=== PATIENT | male | born 1955 | race Hispanic/Latino ===

== ENCOUNTER 2019-01-05 11:47 | Inpatient (IN) | payer MEDICARE ==
[2019-01-05 14:49] VITALS: BMI 27.5
[2019-01-05] MEDS ORDERED: Magnesium Oxide 400 mg Tab UD PO SCH (17:00)
[2019-01-05] MEDS ORDERED: CARVEDILOL 25 MG PO SCH (22:00)
[2019-01-05] MEDS: Magnesium Oxide 400 mg Tab UD PO SCH (22:42)
[2019-01-05] MEDS: Insulin Lispro (humaLOG) 100 Units/ml Inj SC SCH (22:49)
[2019-01-05] MEDS ORDERED: GlipiZIDE 10 mg SR Tab PO ONE (23:01)
[2019-01-06] MEDS: Pantoprazole 40 mg EC Tab PO SCH (06:57)
[2019-01-06 07:13] LABS: MEAN CELL VOLUME 86.9 fl (80.0-94.0); MEAN CORPUSCULAR HEMOGLOBIN 29.7 pg (27.0-31.0); MEAN CORPUSCULAR HGB CONC 34.2 g/dL (33.0-37.0); RBC 4.71 Mil/uL (4.40-5.90); RED CELL DISTRIBUTION WIDTH 13.1 % (11.5-14.5); WHITE BLOOD COUNT 7.3 K/uL (4.8-10.8)
[2019-01-06 07:28] LABS: ALB/GLOB RATIO 1.2 (1.0-2.1); ALBUMIN 3.8 g/dL (3.5-5.0); ALT/SGPT 24 U/L (21-72); AST/SGOT 20 U/L (17-59); BLOOD UREA NITROGEN 22 mg/dl (9-20); CALCIUM 9.7 mg/dL (8.4-10.2); GFR NON-AFRICAN AMERICAN > 60
[2019-01-06] MEDS: Insulin Lispro (humaLOG) 100 Units/ml Inj SC SCH ×4 (08:06→21:16)
[2019-01-06] MEDS: Aspirin 325 mg EC Tablets PO SCH (08:22)
[2019-01-06] MEDS: GlipiZIDE 10 mg SR Tab PO SCH ×2 (08:24→16:34)
[2019-01-06] MEDS: Lidocaine 5% Patch TD SCH (08:25)
[2019-01-06] MEDS: Magnesium Oxide 400 mg Tab UD PO SCH ×2 (08:30→16:34)
[2019-01-06] MEDS ORDERED: Lidocaine 5% Patch TD SCH (09:00)
--- NOTE | 2019-01-06 09:46 | CP.PCM.HP ---
History of Present Illness - History of Present Illness History of Present Illness: CC: Acute Rehab for Acute CVA History of Present Illness: A 63 year old male with history of Diabetes type 2, Ischemic [place], pacemaker, and Hypertension, presents to the emergency department complaining of left upper/lower extremity weakness starting yesterday. Patient reports yesterday he was watching TV and upon getting up from his chair, he felt sudden weakness to his left lower extremity and fell to the floor. Patient assumed it was due to low blood sugar, so he checked it and it measured to 260. Patient remained unconcerned at the time regarding his weakness. Today, patient continues to experience in the lower left extremity, as well as the left upper extremity. Patient was unable to ambulate and decided to come to the ER to be evaluated for symptoms. in [facility] he was found to have acute CVA with Leg Weakness and loss of c oordination. Patient denies any head trauma, LOC, or any other complaints at this time. Denies any history of alcohol consumption, and is no longer a smoker. Present on Admission - Present on Admission Any Indicators Present on Admission: No Review of Systems - Review of Systems All systems: reviewed and no additional remarkable complaints except Review of Systems: as per HPI Past Patient History - Tetanus Immunizations Tetanus Immunization: Unknown - Past Medical History & Family History Past Medical History?: Yes Past Family History: Reviewed and not pertinent - Past Social History Smoking Status: Current Some Days Smoker Alcohol: None Drugs: Denies - CARDIAC Hx Cardiac Disorders: Yes (Cardiomyopathy s/p defibrillator) Hx Congestive Heart Failure: Yes Hx Hypercholesterolemia: Yes Hx Hypertension: Yes - PULMONARY Hx Chronic Obstructive Pulmonary Disease (COPD): Yes - NEUROLOGICAL HX Cerebrovascular Accident: Yes - HEENT Other/Comment: wears glasses - ENDOCRINE/METABOLIC Hx Diabetes Mellitus Type 2: Yes - HEMATOLOGICAL/ONCOLOGICAL Hx AIDS: No Hx Human Immunodeficiency Virus (HIV): No - MUSCULOSKELETAL/RHEUMATOLOGICAL Hx Falls: Yes - PSYCHIATRIC Hx Substance Use: No - ANESTHESIA Hx Anesthesia: Yes Hx Anesthesia Reactions: No Hx Malignant Hyperthermia: No Has any member of the family had a problem w/ anesthesia?: No Meds Allergies/Adverse Reactions: Allergies Allergy/AdvReac Type Severity Reaction Status Date / Time No Known Allergies Allergy Verified 01/05/19 16:23 Physical Exam - Constitutional Appears: Well, No Acute Distress - Head Exam Head Exam: ATRAUMATIC, NORMAL INSPECTION, NORMOCEPHALIC - Eye Exam Eye Exam: EOMI, Normal appearance, PERRL Pupil Exam: NORMAL ACCOMODATION, PERRL - ENT Exam ENT Exam: Mucous Membranes Moist, Normal Exam - Neck Exam Neck exam: Positive for: Normal Inspection - Respiratory Exam Respiratory Exam: Clear to Auscultation Bilateral, NORMAL BREATHING PATTERN - Cardiovascular Exam Cardiovascular Exam: REGULAR RHYTHM, +S1, +S2 - GI/Abdominal Exam GI & Abdominal Exam: Normal Bowel Sounds, Soft. absent: Tenderness - Extremities Exam Extremities exam: Positive for: full ROM, normal capillary refill, normal inspection - Back Exam Back exam: NORMAL INSPECTION - Neurological Exam Neurological exam: Abnormal Gait, Alert, Motor Sensory Deficit, Oriented x3 - Psychiatric Exam Psychiatric exam: Normal Affect, Normal Mood - Skin Skin Exam: Dry, Intact, Normal Color, Warm Results - Vital Signs Recent Vital Signs: Last Vital Signs Temp 98.2 F 01/06/19 08:14 Pulse 72 01/06/19 08:30 Resp 20 01/06/19 08:14 BP 102/59 L 01/06/19 08:30 Pulse Ox 97 01/06/19 08:14 - Labs Result Diagrams: 01/06/19 06:25 01/07/19 05:30 Labs: Laboratory Results - last 24 hr 01/05/19 01/05/19 01/05/19 15:45 21:05 21:05 WBC RBC Hgb Hct MCV MCH MCHC RDW Plt Count Sodium Potassium Chloride Carbon Dioxide Anion Gap BUN Creatinine Est GFR ( Amer) Est GFR (Non-Af Amer) POC Glucose (mg/dL) 194 H 195 H 195 H Random Glucose Calcium Total Bilirubin AST ALT Alkaline Phosphatase Total Protein Albumin Globulin Albumin/Globulin Ratio 01/06/19 01/06/19 01/06/19 06:25 06:25 07:13 WBC 7.3 RBC 4.71 Hgb 14.0 Hct 40.9 MCV 86.9 MCH 29.7 MCHC 34.2 RDW 13.1 Plt Count 177 Sodium 136 Potassium 5.3 H Chloride 96 L Carbon Dioxide 27 Anion Gap 18 BUN 22 H Creatinine 1.0 Est GFR ( Amer) > 60 Est GFR (Non-Af Amer) > 60 POC Glucose (mg/dL) 180 H Random Glucose 173 H Calcium 9.7 Total Bilirubin 0.9 AST 20 ALT 24 Alkaline Phosphatase 76 Total Protein 6.9 Albumin 3.8 Globulin 3.1 Albumin/Globulin Ratio 1.2 - Imaging and Cardiology CT scan - head Status: Report reviewed by me Additional comment: Date of service: 01/04/2019 PROCEDURE: CT HEAD WITHOUT CONTRAST. HISTORY: r/o CVA COMPARISON: 01/03/2019 and 10/22/2012 CT TECHNIQUE: Axial computed tomography images were obtained through the head/brain without intravenous contrast. Radiation dose: Total exam DLP = 922.13 mGy-cm. This CT exam was performed using one or more of the following dose reduction techniques: Automated exposure control, adjustment of the mA and/or kV according to patient size, and/or use of iterative reconstruction technique. FINDINGS: HEMORRHAGE: No intracranial hemorrhage. BRAIN: No mass effect or edema. Chronic microvascular changes are seen in the periventricular white matter. There is a 10 mm round infarct in the right periventricular white matter that appears more well-defined than on yesterday's study. This is suspicious for an acute infarct. VENTRICLES: Unremarkable. No hydrocephalus. CALVARIUM: Unremarkable. PARANASAL SINUSES: Unremarkable as visualized. No significant inflammatory changes. MASTOID AIR CELLS: Unremarkable as visualized. No inflammatory changes. OTHER FINDINGS: None. IMPRESSION: Chronic microvascular changes are seen in the periventricular white matter. There is a 10 mm round infarct in the right periventricular white matter that appears more well-defined than on yesterday's study. This is suspicious for an acute infarct. 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
--- NOTE | 2019-01-06 11:59 | RAD ---
Date of service: 01/06/2019 PROCEDURE: Radiographs of the Chest and Right Ribs. HISTORY: Fall, and Right Chest Pain COMPARISON: None available. TECHNIQUE: Frontal radiograph of the chest and multiple oblique radiographs of the right ribs were obtained. FINDINGS: RIGHT RIBS: The bulbous prominence-some old healed fractures here and/or prominent the coaster cartilaginous bulbous calcifications are another consideration these findings are mainly the 4th 5th and 6th ribs. Discrete radiolucent fracture lines are difficult to confirm on this exam-are some confounding right tracheobronchial air lucencies per also projecting of the ribs impeding optimal evaluation on series 32, image 6 there is deformity of the mid right clavicle compatible with old healed trauma is well. Probable right calcific rotator cuff tendinopathy or calcific bursitis. Noted. Here no fracture lines seen. Old healed trauma inferred the exam is particularly limited regarding the more anterior LUNGS: Clear. PLEURA: No pneumothorax or pleural fluid. CARDIOVASCULAR: Cardiomegaly. Midline sternotomy. The most superior in the 2nd the top sternal wires are not completely continuous. The chronicity of this discontinuity sternal wires is not known. Small gaps are noted. Correlate clinically with any earlier outside chest x-rays. Single pacemaker device in place as well no pulmonary vascular congestion. No aortic atherosclerotic calcification present OTHER FINDINGS: None. IMPRESSION: A several slight deformities of the right ribs posteriorly and anteriorly are noted as detailed above these are most compatible with old remote fractures. Definitive new or acute fractures are not ascertained or confirm. Old right clavicular fracture with resultant deformity. No pneumothorax or pleural effusion seen. Other findings as above.
--- NOTE | 2019-01-06 16:41 | CP.PCM.CON ---
History of Present Illness - History of Present Illness History of Present Illness: Dr Tesfaye PMR consultation on Checo Guzman, born 1955 who has been admitted to [facility] for acute inpatient rehabilitation following an admission for acute right CVA with left HP LISA distribution. He has had some good early recovery. No tPA given. Right hand dominant Review of Systems - Constitutional Constitutional: absent: Anorexia - EENT Eyes: absent: Change in Vision Ears: absent: Ear Discharge, Ear Pain Nose/Mouth/Throat: absent: Nasal Congestion, Nasal Discharge - Cardiovascular Cardiovascular: absent: Chest Pain, Chest Pain at Rest - Respiratory Respiratory: absent: Dyspnea, Hemoptysis - Gastrointestinal Gastrointestinal: absent: Abdominal Pain - Musculoskeletal Musculoskeletal: absent: Back Pain - Integumentary Integumentary: absent: Bleeding Lesions - Neurological Neurological: absent: Abnormal Hearing, Abnormal Movements, Burning Sensations, Confusion, Dizziness, Memory Loss, Paresthesias - Psychiatric Psychiatric: absent: Anxiety Past Patient History - Tetanus Immunizations Tetanus Immunization: Unknown - Past Medical History & Family History Past Medical History?: Yes - Past Social History Smoking Status: Current Some Days Smoker Drugs: Denies Home Situation {Lives}: Other (girlfriend. + steps) - CARDIAC Hx Cardiac Disorders: Yes (Cardiomyopathy s/p defibrillator) Hx Congestive Heart Failure: Yes Hx Hypercholesterolemia: Yes Hx Hypertension: Yes - PULMONARY Hx Chronic Obstructive Pulmonary Disease (COPD): Yes - NEUROLOGICAL HX Cerebrovascular Accident: Yes - HEENT Other/Comment: wears glasses - ENDOCRINE/METABOLIC Hx Diabetes Mellitus Type 2: Yes - HEMATOLOGICAL/ONCOLOGICAL Hx AIDS: No Hx Human Immunodeficiency Virus (HIV): No - MUSCULOSKELETAL/RHEUMATOLOGICAL Hx Falls: Yes - PSYCHIATRIC Hx Substance Use: No - ANESTHESIA Hx Anesthesia: Yes Hx Anesthesia Reactions: No Hx Malignant Hyperthermia: No Has any member of the family had a problem w/ anesthesia?: No Meds Allergies/Adverse Reactions: Allergies Allergy/AdvReac Type Severity Reaction Status Date / Time No Known Allergies Allergy Verified 01/05/19 16:23 - Medications Medications: Current Medications Acetaminophen (Tylenol 325mg Tab) 650 mg PO Q6 PRN PRN Reason: for pain scale 4-10 Last Admin: 01/06/19 00:10 Dose: 650 mg Aspirin (Ecotrin) 325 mg PO DAILY [facility] Last Admin: 01/06/19 08:22 Dose: 325 mg Atorvastatin Calcium (Lipitor) 80 mg PO DIN [facility] Last Admin: 01/06/19 16:35 Dose: 80 mg Carvedilol (Coreg) 25 mg PO BID [facility] Last Admin: 01/06/19 16:35 Dose: 25 mg Cyclobenzaprine HCl (Flexeril) 5 mg PO TID [facility] Last Admin: 01/06/19 16:34 Dose: 5 mg Furosemide (Lasix) 40 mg PO DAILY [facility] Last Admin: 01/06/19 08:24 Dose: 40 mg Glipizide (Glucotrol Xl) 10 mg PO 0800,1700 [facility] Last Admin: 01/06/19 16:34 Dose: 10 mg Insulin Human Lispro (Humalog) 0 units SC ACHS [facility]; Protocol Last Admin: 01/06/19 12:00 Dose: 4 unit Lidocaine (Lidoderm) 1 ea TD DAILY [facility] Last Admin: 01/06/19 08:25 Dose: 1 ea Lisinopril (Zestril) 20 mg PO DAILY [facility] Last Admin: 01/06/19 08:30 Dose: 20 mg Magnesium Oxide (Mag-Ox) 400 mg PO BID [facility] Last Admin: 01/06/19 16:34 Dose: 400 mg Metformin HCl (Glucophage) 1,000 mg PO BID [facility] Last Admin: 01/06/19 16:34 Dose: 1,000 mg Pantoprazole Sodium (Protonix Ec Tab) 40 mg PO 0600 [facility] Last Admin: 01/06/19 06:57 Dose: 40 mg Physical Exam - Constitutional Appears: Well, Non-toxic, No Acute Distress - Head Exam Head Exam: ATRAUMATIC, NORMAL INSPECTION, NORMOCEPHALIC - Eye Exam Eye Exam: EOMI - ENT Exam ENT Exam: Mucous Membranes Moist - Respiratory Exam Respiratory Exam: NORMAL BREATHING PATTERN - Cardiovascular Exam Cardiovascular Exam: REGULAR RHYTHM - GI/Abdominal Exam GI & Abdominal Exam: Normal Bowel Sounds - Extremities Exam Extremities exam: Negative for: calf tenderness, pedal edema - Neurological Exam Neurological exam: Alert, CN II-XII Intact, Oriented x3 - Psychiatric Exam Psychiatric exam: Normal Affect, Normal Mood - Skin Skin Exam: Warm Results - Vital Signs Recent Vital Signs: Last Vital Signs Temp 98.2 F 01/06/19 08:14 Pulse 66 01/06/19 16:35 Resp 20 01/06/19 08:14 BP 119/79 01/06/19 16:35 Pulse Ox 97 01/06/19 08:14 - Labs Result Diagrams: 01/06/19 06:25 01/06/19 06:25 Labs: Laboratory Results - last 24 hr 01/05/19 01/05/19 01/06/19 21:05 21:05 06:25 WBC 7.3 RBC 4.71 Hgb 14.0 Hct 40.9 MCV 86.9 MCH 29.7 MCHC 34.2 RDW 13.1 Plt Count 177 Sodium Potassium Chloride Carbon Dioxide Anion Gap BUN Creatinine Est GFR ( Amer) Est GFR (Non-Af Amer) POC Glucose (mg/dL) 195 H 195 H Random Glucose Calcium Total Bilirubin AST ALT Alkaline Phosphatase Total Protein Albumin Globulin Albumin/Globulin Ratio 01/06/19 01/06/19 01/06/19 06:25 07:13 11:28 WBC RBC Hgb Hct MCV MCH MCHC RDW Plt Count Sodium 136 Potassium 5.3 H Chloride 96 L Carbon Dioxide 27 Anion Gap 18 BUN 22 H Creatinine 1.0 Est GFR ( Amer) > 60 Est GFR (Non-Af Amer) > 60 POC Glucose (mg/dL) 180 H 314 H Random Glucose 173 H Calcium 9.7 Total Bilirubin 0.9 AST 20 ALT 24 Alkaline Phosphatase 76 Total Protein 6.9 Albumin 3.8 Globulin 3.1 Albumin/Globulin Ratio 1.2 01/06/19 16:02 WBC RBC Hgb Hct MCV MCH MCHC RDW Plt Count Sodium Potassium Chloride Carbon Dioxide Anion Gap BUN Creatinine Est GFR ( Amer) Est GFR (Non-Af Amer) POC Glucose (mg/dL) 215 H Random Glucose Calcium Total Bilirubin AST ALT Alkaline Phosphatase Total Protein Albumin Globulin Albumin/Globulin Ratio Assessment & Plan - Assessment and Plan (Free Text) Assessment: PT/OT to continue to help increase functional independence Team conference for d/c planning Pain: controlled Vascular: no evidence of DVT GI: No evidence of constipation or diarrhea Patient is an excellent acute rehabilitation candidate and will have focused PT, OT and recreational therapy to help facilitate a safe and appropriate d/c plan Impairment code: 01.1 right UE/LE 5/5 left UE 4/5 left LE 3/5
--- NOTE | 2019-01-06 17:10 | PCM.OPOC ---
Physiatry Overall Plan of Care - Overall Plan of Care Estimated Length of Stay in Weeks: 2 Rehab Impairment: Mobility, Gait, Balance, Coordination Etiologic Diagnosis: Cerebrovascular Accident Rehab/Medical Prognosis: Good - Anticipated Interventions Physical Therapy:: Yes Occupational Therapy:: Yes Speech Therapy:: No Recreational Therapy:: Yes - Therapy Goals Bed Mobility: Independent Ambulation: Independent Functional Positional Changes:: Independent - Discharge Plan Identification of Barriers to Discharge: Home Situation Discharge Destination: Home
[2019-01-07 06:44] LABS: BLOOD UREA NITROGEN 20 mg/dl (9-20); CALCIUM 9.3 mg/dL (8.4-10.2); GFR NON-AFRICAN AMERICAN > 60
[2019-01-07] MEDS: Pantoprazole 40 mg EC Tab PO SCH (06:52)
[2019-01-07] MEDS: Insulin Lispro (humaLOG) 100 Units/ml Inj SC SCH ×4 (07:56→21:12)
[2019-01-07] MEDS: GlipiZIDE 10 mg SR Tab PO SCH ×2 (08:00→17:12)
[2019-01-07] MEDS: Magnesium Oxide 400 mg Tab UD PO SCH ×2 (08:24→17:13)
[2019-01-07] MEDS: Aspirin 325 mg EC Tablets PO SCH (08:24)
[2019-01-07] MEDS: Lidocaine 5% Patch TD SCH (08:26)
--- NOTE | 2019-01-08 02:57 | CP.PCM.PN ---
Subjective - Date & Time of Evaluation Date of Evaluation: 01/07/19 Time of Evaluation: 18:00 Objective - Vital Signs/Intake and Output Vital Signs (last 24 hours): Temp Pulse Resp BP Pulse Ox 97.3 F L 71 20 115/69 97 01/07/19 20:20 01/07/19 20:20 01/07/19 20:20 01/07/19 20:20 01/07/19 20:20 - Medications Medications: Current Medications Acetaminophen (Tylenol 325mg Tab) 650 mg PO Q6 PRN PRN Reason: Pain, moderate (4-7) Aspirin (Ecotrin) 325 mg PO DAILY [facility] Last Admin: 01/07/19 08:24 Dose: 325 mg Atorvastatin Calcium (Lipitor) 80 mg PO DIN [facility] Last Admin: 01/07/19 17:13 Dose: 80 mg Carvedilol (Coreg) 25 mg PO BID [facility] Last Admin: 01/07/19 17:10 Dose: 25 mg Cyclobenzaprine HCl (Flexeril) 5 mg PO TID [facility] Last Admin: 01/07/19 17:09 Dose: 5 mg Furosemide (Lasix) 40 mg PO DAILY [facility] Last Admin: 01/07/19 08:25 Dose: 40 mg Glipizide (Glucotrol Xl) 10 mg PO 0800,1700 [facility] Last Admin: 01/07/19 17:12 Dose: 10 mg Insulin Human Lispro (Humalog) 0 units SC [facility]; Protocol Last Admin: 01/07/19 21:12 Dose: Not Given Lidocaine (Lidoderm) 1 ea TD DAILY [facility] Last Admin: 01/07/19 08:26 Dose: 1 ea Lisinopril (Zestril) 20 mg PO DAILY [facility] Last Admin: 01/07/19 08:27 Dose: 20 mg Magnesium Oxide (Mag-Ox) 400 mg PO BID [facility] Last Admin: 01/07/19 17:13 Dose: 400 mg Metformin HCl (Glucophage) 1,000 mg PO BID [facility] Last Admin: 01/07/19 17:12 Dose: 1,000 mg Pantoprazole Sodium (Protonix Ec Tab) 40 mg PO 0600 [facility] Last Admin: 01/07/19 06:52 Dose: 40 mg Tramadol HCl (Ultram) 50 mg PO Q12 PRN PRN Reason: Pain, severe (8-10) Last Admin: 01/07/19 21:18 Dose: 50 mg - Labs Labs: 01/06/19 06:25 01/07/19 05:30 Assessment and Plan (1) Cerebrovascular accident Status: Acute (2) Dyspnea Status: Acute (3) Hyperglycemia due to type 1 diabetes mellitus Status: Acute (4) Cardiomyopathy Status: Chronic
[2019-01-08] MEDS: Pantoprazole 40 mg EC Tab PO SCH (06:25)
[2019-01-08] MEDS: Insulin Lispro (humaLOG) 100 Units/ml Inj SC SCH ×4 (06:30→21:00)
[2019-01-08] MEDS: GlipiZIDE 10 mg SR Tab PO SCH ×2 (08:15→16:29)
[2019-01-08] MEDS: Aspirin 325 mg EC Tablets PO SCH (08:16)
[2019-01-08] MEDS: Magnesium Oxide 400 mg Tab UD PO SCH ×2 (08:16→16:30)
[2019-01-08] MEDS: Lidocaine 5% Patch TD SCH (08:17)
--- NOTE | 2019-01-08 16:35 | CP.PCM.PN ---
Subjective - Date & Time of Evaluation Date of Evaluation: 01/08/19 Time of Evaluation: 16:34 - Subjective Subjective: Patient seen in the gym, doing well denies sob/cp no pain did over 150' with RW excellent acute rehab candidate Objective - Vital Signs/Intake and Output Vital Signs (last 24 hours): Temp Pulse Resp BP Pulse Ox 98.2 F 78 18 108/59 L 98 01/08/19 08:30 01/08/19 16:29 01/08/19 08:30 01/08/19 16:29 01/08/19 08:30 - Medications Medications: Current Medications Acetaminophen (Tylenol 325mg Tab) 650 mg PO Q6 PRN PRN Reason: Pain, moderate (4-7) Aspirin (Ecotrin) 325 mg PO DAILY [facility] Last Admin: 01/08/19 08:16 Dose: 325 mg Atorvastatin Calcium (Lipitor) 80 mg PO DIN [facility] Last Admin: 01/08/19 16:30 Dose: 80 mg Carvedilol (Coreg) 25 mg PO BID [facility] Last Admin: 01/08/19 16:29 Dose: 25 mg Cyclobenzaprine HCl (Flexeril) 5 mg PO TID [facility] Last Admin: 01/08/19 16:27 Dose: 5 mg Furosemide (Lasix) 40 mg PO DAILY [facility] Last Admin: 01/08/19 08:16 Dose: 40 mg Glipizide (Glucotrol Xl) 10 mg PO 0800,1700 [facility] Last Admin: 01/08/19 16:29 Dose: 10 mg Insulin Human Lispro (Humalog) 0 units SC ACHS [facility]; Protocol Last Admin: 01/08/19 16:23 Dose: Not Given Lidocaine (Lidoderm) 1 ea TD DAILY [facility] Last Admin: 01/08/19 08:17 Dose: 1 ea Lisinopril (Zestril) 20 mg PO DAILY [facility] Magnesium Oxide (Mag-Ox) 400 mg PO BID [facility] Last Admin: 01/08/19 16:30 Dose: 400 mg Metformin HCl (Glucophage) 1,000 mg PO BID [facility] Last Admin: 01/08/19 16:29 Dose: 1,000 mg Pantoprazole Sodium (Protonix Ec Tab) 40 mg PO 0600 [facility] Last Admin: 01/08/19 06:25 Dose: 40 mg Tramadol HCl (Ultram) 50 mg PO Q12 PRN PRN Reason: Pain, severe (8-10) - Labs Labs: 01/06/19 06:25 01/07/19 05:30
--- NOTE | 2019-01-09 01:00 | CP.PCM.PN ---
Subjective - Date & Time of Evaluation Date of Evaluation: 01/08/19 Time of Evaluation: 12:05 Objective - Vital Signs/Intake and Output Vital Signs (last 24 hours): Temp Pulse Resp BP Pulse Ox 98.2 F 76 20 109/66 95 01/08/19 19:45 01/08/19 19:45 01/08/19 19:45 01/08/19 19:45 01/08/19 19:45 - Medications Medications: Current Medications Acetaminophen (Tylenol 325mg Tab) 650 mg PO Q6 PRN PRN Reason: Pain, moderate (4-7) Aspirin (Ecotrin) 325 mg PO DAILY [facility] Last Admin: 01/08/19 08:16 Dose: 325 mg Atorvastatin Calcium (Lipitor) 80 mg PO DIN [facility] Last Admin: 01/08/19 16:30 Dose: 80 mg Carvedilol (Coreg) 25 mg PO BID [facility] Last Admin: 01/08/19 16:29 Dose: 25 mg Cyclobenzaprine HCl (Flexeril) 5 mg PO TID [facility] Last Admin: 01/08/19 16:27 Dose: 5 mg Furosemide (Lasix) 40 mg PO DAILY [facility] Last Admin: 01/08/19 08:16 Dose: 40 mg Glipizide (Glucotrol Xl) 10 mg PO 0800,1700 [facility] Last Admin: 01/08/19 16:29 Dose: 10 mg Insulin Human Lispro (Humalog) 0 units SC [facility]; Protocol Last Admin: 01/08/19 21:00 Dose: Not Given Lidocaine (Lidoderm) 1 ea TD DAILY [facility] Last Admin: 01/08/19 08:17 Dose: 1 ea Lisinopril (Zestril) 20 mg PO DAILY [facility] Magnesium Oxide (Mag-Ox) 400 mg PO BID [facility] Last Admin: 01/08/19 16:30 Dose: 400 mg Metformin HCl (Glucophage) 1,000 mg PO BID [facility] Last Admin: 01/08/19 16:29 Dose: 1,000 mg Pantoprazole Sodium (Protonix Ec Tab) 40 mg PO 0600 [facility] Last Admin: 01/08/19 06:25 Dose: 40 mg Tramadol HCl (Ultram) 50 mg PO Q12 PRN PRN Reason: Pain, severe (8-10) Last Admin: 01/08/19 20:57 Dose: 50 mg - Labs Labs: 01/06/19 06:25 03/07/19 05:30 Assessment and Plan (1) Cerebrovascular accident Status: Acute (2) Dyspnea Status: Acute (3) Hyperglycemia due to type 1 diabetes mellitus Status: Acute (4) Cardiomyopathy Status: Chronic
[2019-01-09] MEDS: Pantoprazole 40 mg EC Tab PO SCH (06:15)
[2019-01-09] MEDS: Insulin Lispro (humaLOG) 100 Units/ml Inj SC SCH ×4 (06:30→21:14)
[2019-01-09] MEDS: Lidocaine 5% Patch TD SCH (08:18)
[2019-01-09] MEDS: GlipiZIDE 10 mg SR Tab PO SCH ×2 (08:19→17:12)
[2019-01-09] MEDS: Magnesium Oxide 400 mg Tab UD PO SCH ×2 (08:21→17:09)
[2019-01-09] MEDS: Aspirin 325 mg EC Tablets PO SCH (08:22)
[2019-01-10] MEDS: Pantoprazole 40 mg EC Tab PO SCH (06:44)
[2019-01-10] MEDS: Insulin Lispro (humaLOG) 100 Units/ml Inj SC SCH ×4 (07:42→21:13)
[2019-01-10] MEDS: Aspirin 325 mg EC Tablets PO SCH (08:22)
[2019-01-10] MEDS: Magnesium Oxide 400 mg Tab UD PO SCH ×2 (08:23→17:21)
[2019-01-10] MEDS: GlipiZIDE 10 mg SR Tab PO SCH ×2 (08:23→17:21)
[2019-01-10] MEDS: Lidocaine 5% Patch TD SCH (08:24)
[2019-01-11] MEDS: Pantoprazole 40 mg EC Tab PO SCH (06:35)
[2019-01-11] MEDS: Insulin Lispro (humaLOG) 100 Units/ml Inj SC SCH ×5 (06:48→21:03)
[2019-01-11] MEDS: Magnesium Oxide 400 mg Tab UD PO SCH ×2 (08:20→17:15)
[2019-01-11] MEDS: GlipiZIDE 10 mg SR Tab PO SCH ×2 (08:23→17:14)
[2019-01-11] MEDS: Aspirin 325 mg EC Tablets PO SCH (08:28)
[2019-01-11] MEDS: Lidocaine 5% Patch TD SCH (12:24)
--- NOTE | 2019-01-11 17:56 | CP.PCM.PN ---
Subjective - Date & Time of Evaluation Date of Evaluation: 01/11/19 Time of Evaluation: 17:55 - Subjective Subjective: Patient seen in the room very, very impressed and appreciative for the care he has received to this point denies sob/cp feels balance is 90% recovered no knee pain which had actually been bothering him before the admission and feels like he can go home shortly I told him this will be discussed tomorrow in teams good UE/LE strength Objective - Vital Signs/Intake and Output Vital Signs (last 24 hours): Temp Pulse Resp BP Pulse Ox 97.3 F L 78 20 101/62 97 01/11/19 07:26 01/11/19 17:12 01/11/19 07:26 01/11/19 17:12 01/11/19 07:26 - Medications Medications: Current Medications Acetaminophen (Tylenol 325mg Tab) 650 mg PO Q6 PRN PRN Reason: Pain, moderate (4-7) Aspirin (Ecotrin) 325 mg PO DAILY [facility] Last Admin: 01/11/19 08:28 Dose: 325 mg Atorvastatin Calcium (Lipitor) 80 mg PO DIN [facility] Last Admin: 01/11/19 17:14 Dose: 80 mg Carvedilol (Coreg) 25 mg PO BID [facility] Last Admin: 01/11/19 17:12 Dose: 25 mg Cyclobenzaprine HCl (Flexeril) 5 mg PO TID [facility] Last Admin: 01/11/19 17:13 Dose: 5 mg Furosemide (Lasix) 40 mg PO DAILY [facility] Last Admin: 01/11/19 08:30 Dose: 40 mg Glipizide (Glucotrol Xl) 10 mg PO 0800,1700 [facility] Last Admin: 01/11/19 17:14 Dose: 10 mg Insulin Human Lispro (Humalog) 0 units SC [facility]; Protocol Last Admin: 01/11/19 17:18 Dose: Not Given Lidocaine (Lidoderm) 1 ea TD DAILY [facility] Last Admin: 01/11/19 12:24 Dose: 1 ea Lisinopril (Zestril) 20 mg PO DAILY [facility] Last Admin: 01/11/19 12:31 Dose: 20 mg Magnesium Oxide (Mag-Ox) 400 mg PO BID [facility] Last Admin: 01/11/19 17:15 Dose: 400 mg Metformin HCl (Glucophage) 1,000 mg PO BID [facility] Last Admin: 01/11/19 17:14 Dose: 1,000 mg Pantoprazole Sodium (Protonix Ec Tab) 40 mg PO 0600 [facility] Last Admin: 01/11/19 06:35 Dose: 40 mg Tramadol HCl (Ultram) 50 mg PO Q12 PRN PRN Reason: Pain, severe (8-10) - Labs Labs: 01/06/19 06:25 01/07/19 05:30
[2019-01-12] MEDS: Pantoprazole 40 mg EC Tab PO SCH (06:32)
[2019-01-12] MEDS: Insulin Lispro (humaLOG) 100 Units/ml Inj SC SCH ×4 (06:34→21:00)
[2019-01-12] MEDS: GlipiZIDE 10 mg SR Tab PO SCH ×2 (08:17→16:31)
[2019-01-12] MEDS: Aspirin 325 mg EC Tablets PO SCH (08:19)
[2019-01-12] MEDS: Lidocaine 5% Patch TD SCH (08:20)
[2019-01-12] MEDS: Magnesium Oxide 400 mg Tab UD PO SCH ×2 (08:20→16:30)
--- NOTE | 2019-01-12 13:13 | PCM.PSYTMC ---
Acute Rehab Team Conference - - Vital Signs: Vital Signs (Last 8 Hours): Vital Signs 01/12/19 01/12/19 01/12/19 07:47 08:05 08:19 Temperature 98.8 F 98.8 F Pulse Rate 75 75 75 Respiratory 21 21 Rate Blood Pressure 120/74 120/74 120/74 O2 Sat by Pulse 96 Oximetry 01/12/19 08:20 Temperature Pulse Rate Respiratory Rate Blood Pressure 120/74 O2 Sat by Pulse Oximetry Pain: 0 - Precautions: Precautions: Fall Prevention - Medications/Other Issues: Comment: -Improving left sided weakness - Consults: Comment: -Dr. Tesfaye - physiatry - Skin: Incision Site: N/A - Toileting: Toileting: Modified Independent - Bladder Management: Bladder Pattern: Normal Voiding Method: Toilet, Urinal Bladder Management: Supervision - Transfers: Transfers: Supervision - ADL's: ADL's: Supervision - Pain Management: Other Intervention:: -Lidoderm patch on for 12 hours; off for 12 hours. -Ultram PRN - Patient/Family Teaching: Other Intervention:: -Teach patient safety precautions, diagnosis, and medication. - Goals/Time Frame: Comment: Patient will remain safe and have improved knowledge in his diagnosis and medication. - Provider: Registered Nurse:: Amarilis Garcia Physical Therapy - Bed Mobility Bed Mobility: Modified Independent - Transfers Wheelchair to Mat: Modified Independent Sit to Stand: Modified Independent Comment: Mod I with RW - Ambulation Level of Assistance: Supervision Distance (ft.): 150 Assistive Devices: Rolling Walker Comment: 50' with min A WBQC - Stair Negotiation Stairs: Level of Assistance: Supervision Number of Stairs: 6 Handrails: Bilateral Stairs: Assistive Devices: Left Handrail, Right Handrail - Standing Balance Static Stand: Modified [place] with assistive device - Pain Pain (assessed during therapy session): 1 Alleviating Techniques: Exercise - Insight/Carryover Insight/Carryover: Good - Patient/Family Education Comment: Reviewed the Plan of care - Assessment/Plan Assessment: Pt has made significant gains, now ambulating with sup with RW and will progress to ambulation with NBQC. He continues to demonstrate endurance and motor impairments of LLE which affects his safety ambulating with NBQC. Pt still needs to be assessed with outdoor ambulation and car transfers. - Goals Timeframe: 1 week Goals: sit <> stand mod I. amb NBQC 200' mod I. up and down 1 flight with 1 rail and NBQC mod I - Provider Physical Therapist:: Valery Bravo License Number:: [id number] Occupational Therapy - Arousal/Attention/Orientation Level of Consciousness: Awake, Alert Patient Orientation: Person, Place, Time, Appropriate to Age, Appropriate to Situation, Disoriented Assessment Comment: -anxious to go home-pt reminded of team conference with Dr. Tesfaye on 01/12. -prefers to f/u with outpatient physical therapy. -pillowcase maker made aware of pt's concerns - ADL/IADL Self Feeding: Modified Independent Grooming: Set-up Help Bathing-Upper Ext: Set-up Help Bathing-Lower Ext: Supervision, Set-up Help Dressing-Upper Ext: Set-up Help Dressing-Lower Ext: Supervision, Verbal Cues Homemaking: Verbal Cues, Set-up Help, Contact Guard - Sitting Balance Static Sitting: Independent without upper extremity support Dynamic Sitting: Reaches across midline, Reaches out of base of support, Reaches within base of support, Requires supervision Comment: seated unsupported - Transfers Wheelchair to Bed Transfers: Supervision, Verbal Cues, Set-up Help Toilet Transfers: Supervision, Verbal Cues, Set-up Help Comment: *shower transfers: S/CS with RW. NOTE:Pt has walk in shower at home & elevated/elongated toilet - Wheelchair Management Level of Assistance: Modified Independent Distance (ft.): 150 - Upper Extremity Status Right Upper Extremity Comment: AROM is WNLS: 5/5 Left Upper Extremity Comment: AROM is WNLS:4/4 - Pain Pain (assessed during therapy session): 0 - Insight/Carryover Insight/Carryover: Good - Patient/Family Education Comment: -adl, transfer/mobility training. -w/c management(brakes), propulsion. -energy conservation/pacing for all tasks. -rehab/OT goals, plan of care. - review uses/applications of shower chair with back, 3 in one commode for increase safety in bathroom. ---further training/education needed to increase safety/I - Assessment/Plan Assessment: Pt is a 63 year old male with dx; acute CVA with L hemiparesis. Precautions: falls, LUE/LLE weakness/incordination, cardiac, NIDDM, +w/c alarm. Pt continues to demonstrate steady improvement in functional transfers/mobility as evidence by increase DANDY, increase step length, & increase LLE clearance/heel strike. Pt also presents with increase LUE strength, dexterity, gross/fine motor function as evidenced by increase speed/accuracy of LUE movement. Pt needs reminders to pace self with all activities as needed for incraese safety/body awareness. Will continue to benefit from skilled Occupational Therapy to further increase LUE function, postural control, safety awareness as needed to maximize function in self care, transfers/mobilityand Iadls for safe transition home with services pending progress. Pt currently Supervision overall for self care, transfers & mobility. Goal:Mod I for adls, transfers/mobility, homemaking and Iadls. - Goals Timeframe: 5 days Comment: Mod I for self care, functional transfers/mobility, light kitchen tasks uisng assaistive device, compensatory strategies prn. - Provider Occupational Therapist:: Edel Gee License Number: [id number] Recreational Therapy - Participation Participation: Participates in Individual and/or Group Sessions - Attendance Attendance: 3-5 times per week - Activities Leisure Activities: Cards and Games - Socialization Level of Socialization: Initiates/interacts freely with care givers and peer - Diversional Time Diversional Time: watching television, socializing - Assessment Assessment/Plan: Pt is agreeable to participate in 1:1 and group recreation therapy sessions throughout stay on unit. Pt has participated in group tasks of bingo with peers and oriented to tapple task. Pt is mod I-independent with all leisure tasks following setup or orientation. Pt carries over task rules and demonstrates no deficits with fine motor skill related tasks and direction following related tasks. Pt will continue to benefit from participating in recreation therapy sessions and expressed interest in attending stroke education group offered this week. Problems Currently Limiting Participation: Pt will tolerate participating in 30 minutes of tabletop task and will be introduced to diversional strategies to improve arousal level and mood state by date of discharge. Goals and Time Frame: Pt will tolerate participating in 30 minutes of tabletop task and will be introduced to diversional strategies to improve arousal level and mood state by date of discharge. - Provider Therapist: Kera Garcia Nutrition - Current Diet Current Diet/Supplement/Feedings: Moderate consistent CHO heart healthy diet - Appetite Percent Meal Consumed: 75-100% - Assessment/Goals/Time Frame Assessments/Goals/Time Frame: Pt at moderate nutritional risk. goals: 1. Pt to consume 75-100% of meals(met, continue). 2. Blood glucoses to be between 70- 180 mg/dl(partially met, continue). Follow-up due on 01/26/2019 - Provider Provider: Clarice Peña Case Management - Psychosocial Assessment Support Systems: Emmy Ramos (significant other)- [phone] Psychological Interventions/Needs: Patient is AAOx3 and able to verbalize needs. Discharge Concerns: Patient is a new stroke and this is his first medical event. Patient has about two flights of steps to navigate at home. Patient/Family Meeting: CM met with patient and rehab team. Intervention/Goal/Outcome: 1. Goal: Modified [place] 2. Plan: outpatient rehab 3. caregiver training with girlfriend? 4. discuss with team what DME pt will need 5. schedule f/u appts 6. continued emotional support - Discharge Plan Discharge Plan: Home with significant other/family Comment: outpatient PT? - Provider Provider: Caron Pelayo License Number: [id number] Rehabilitation Plan - Treatment Plan Treatment Plan: Physical Therapy, Occupational Therapy, Dietary, Patient/Family Education - Discharge Plan Estimated Date of Discharge: 01/16/19 Discharge to: Home
--- NOTE | 2019-01-12 13:36 | CP.PCM.PN ---
Subjective - Date & Time of Evaluation Date of Evaluation: 01/12/19 Time of Evaluation: 13:36 - Subjective Subjective: Patient seen in the room in good spirits denies pain or sob feels like he has made great progress Objective - Vital Signs/Intake and Output Vital Signs (last 24 hours): Temp Pulse Resp BP Pulse Ox 98.8 F 75 21 120/74 96 01/12/19 08:05 01/12/19 08:19 01/12/19 08:05 01/12/19 08:20 01/12/19 08:05 - Medications Medications: Current Medications Acetaminophen (Tylenol 325mg Tab) 650 mg PO Q6 PRN PRN Reason: Pain, moderate (4-7) Aspirin (Ecotrin) 325 mg PO DAILY [facility] Last Admin: 01/12/19 08:19 Dose: 325 mg Atorvastatin Calcium (Lipitor) 80 mg PO DIN [facility] Last Admin: 01/11/19 17:14 Dose: 80 mg Carvedilol (Coreg) 25 mg PO BID [facility] Last Admin: 01/12/19 08:19 Dose: 25 mg Cyclobenzaprine HCl (Flexeril) 5 mg PO TID [facility] Last Admin: 01/12/19 12:13 Dose: 5 mg Furosemide (Lasix) 40 mg PO DAILY [facility] Last Admin: 01/12/19 08:20 Dose: 40 mg Glipizide (Glucotrol Xl) 10 mg PO 0800,1700 [facility] Last Admin: 01/12/19 08:17 Dose: 10 mg Insulin Human Lispro (Humalog) 0 units SC ACHS [facility]; Protocol Last Admin: 01/12/19 12:11 Dose: 1 unit Lidocaine (Lidoderm) 1 ea TD DAILY [facility] Last Admin: 01/12/19 08:20 Dose: 1 ea Lisinopril (Zestril) 20 mg PO DAILY [facility] Last Admin: 01/12/19 08:19 Dose: 20 mg Magnesium Oxide (Mag-Ox) 400 mg PO BID [facility] Last Admin: 01/12/19 08:20 Dose: 400 mg Metformin HCl (Glucophage) 1,000 mg PO BID [facility] Last Admin: 01/12/19 08:18 Dose: 1,000 mg Pantoprazole Sodium (Protonix Ec Tab) 40 mg PO 0600 [facility] Last Admin: 01/12/19 06:32 Dose: 40 mg Tramadol HCl (Ultram) 50 mg PO Q12 PRN PRN Reason: Pain, severe (8-10) - Labs Labs: 01/06/19 06:25 01/07/19 05:30 - Constitutional Appears: Well, Non-toxic, No Acute Distress - Head Exam Head Exam: ATRAUMATIC, NORMAL INSPECTION, NORMOCEPHALIC - Eye Exam Eye Exam: EOMI - ENT Exam ENT Exam: Mucous Membranes Moist - Respiratory Exam Respiratory Exam: NORMAL BREATHING PATTERN - GI/Abdominal Exam GI & Abdominal Exam: absent: Distended - Neurological Exam Neurological Exam: Alert, CN II-XII Intact, Oriented x3 - Psychiatric Exam Psychiatric exam: Normal Affect, Normal Mood - Skin Skin Exam: Warm Assessment and Plan - Assessment and Plan (Free Text) Assessment: 59 year old with CVA and markedly improved function very motivated and an ideal acute rehab candidate continue current care
[2019-01-13] MEDS: Pantoprazole 40 mg EC Tab PO SCH (06:18)
[2019-01-13] MEDS: Insulin Lispro (humaLOG) 100 Units/ml Inj SC SCH ×4 (06:30→22:11)
[2019-01-13] MEDS: GlipiZIDE 10 mg SR Tab PO SCH ×2 (08:42→16:25)
[2019-01-13] MEDS: Magnesium Oxide 400 mg Tab UD PO SCH ×2 (08:42→16:25)
[2019-01-13] MEDS: Aspirin 325 mg EC Tablets PO SCH (08:45)
[2019-01-13] MEDS: Lidocaine 5% Patch TD SCH (08:46)
--- NOTE | 2019-01-13 17:51 | CP.PCM.PN ---
Subjective - Date & Time of Evaluation Date of Evaluation: 01/13/19 Time of Evaluation: 17:50 - Subjective Subjective: Pt seen in the room doing very well no pain wants to go home a day earlier and he is safe at this point and I will approve d/c 01/15/19 with tomorrow being the last day of therapy also stroke support group tomorrow Objective - Vital Signs/Intake and Output Vital Signs (last 24 hours): Temp Pulse Resp BP Pulse Ox 97.7 F 75 20 117/67 97 01/13/19 08:39 01/13/19 16:38 01/13/19 08:39 01/13/19 16:38 01/13/19 08:39 - Medications Medications: Current Medications Acetaminophen (Tylenol 325mg Tab) 650 mg PO Q6 PRN PRN Reason: Pain, moderate (4-7) Aspirin (Ecotrin) 325 mg PO DAILY [facility] Last Admin: 01/13/19 08:45 Dose: 325 mg Atorvastatin Calcium (Lipitor) 80 mg PO DIN [facility] Last Admin: 01/13/19 16:25 Dose: 80 mg Carvedilol (Coreg) 25 mg PO BID [facility] Last Admin: 01/13/19 16:38 Dose: 25 mg Cyclobenzaprine HCl (Flexeril) 5 mg PO TID [facility] Last Admin: 01/13/19 16:25 Dose: 5 mg Furosemide (Lasix) 40 mg PO DAILY [facility] Last Admin: 01/13/19 08:43 Dose: 40 mg Glipizide (Glucotrol Xl) 10 mg PO 0800,1700 [facility] Last Admin: 01/13/19 16:25 Dose: 10 mg Insulin Human Lispro (Humalog) 0 units SC [facility]; Protocol Last Admin: 01/13/19 16:23 Dose: Not Given Lidocaine (Lidoderm) 1 ea TD DAILY [facility] Last Admin: 01/13/19 08:46 Dose: 1 ea Lisinopril (Zestril) 20 mg PO DAILY [facility] Last Admin: 01/13/19 08:46 Dose: 20 mg Magnesium Oxide (Mag-Ox) 400 mg PO BID [facility] Last Admin: 01/13/19 16:25 Dose: 400 mg Metformin HCl (Glucophage) 1,000 mg PO BID [facility] Last Admin: 01/13/19 16:25 Dose: 1,000 mg Pantoprazole Sodium (Protonix Ec Tab) 40 mg PO 0600 [facility] Last Admin: 01/13/19 06:18 Dose: 40 mg Tramadol HCl (Ultram) 50 mg PO Q12 PRN PRN Reason: Pain, severe (8-10) - Labs Labs: 01/06/19 06:25 01/07/19 05:30
[2019-01-14] MEDS: Pantoprazole 40 mg EC Tab PO SCH (06:32)
[2019-01-14] MEDS: Insulin Lispro (humaLOG) 100 Units/ml Inj SC SCH ×4 (08:04→21:11)
[2019-01-14] MEDS: Magnesium Oxide 400 mg Tab UD PO SCH ×2 (08:09→17:30)
[2019-01-14] MEDS: Aspirin 325 mg EC Tablets PO SCH (08:09)
[2019-01-14] MEDS: GlipiZIDE 10 mg SR Tab PO SCH ×2 (08:12→17:29)
[2019-01-14] MEDS: Lidocaine 5% Patch TD SCH (08:56)
--- NOTE | 2019-01-14 11:01 | CP.PCM.PN ---
Subjective - Date & Time of Evaluation Date of Evaluation: 01/14/19 Time of Evaluation: 11:00 - Subjective Subjective: Patient seen in the room lungs CTA no pain no sob pending left knee brace arrival for severe genu varus deformity Objective - Vital Signs/Intake and Output Vital Signs (last 24 hours): Temp Pulse Resp BP Pulse Ox 97.7 F 73 19 137/74 100 01/14/19 08:26 01/14/19 08:57 01/14/19 08:26 01/14/19 08:57 01/14/19 08:26 - Medications Medications: Current Medications Acetaminophen (Tylenol 325mg Tab) 650 mg PO Q6 PRN PRN Reason: Pain, moderate (4-7) Aspirin (Ecotrin) 325 mg PO DAILY [facility] Last Admin: 01/14/19 08:09 Dose: 325 mg Atorvastatin Calcium (Lipitor) 80 mg PO DIN [facility] Last Admin: 01/13/19 16:25 Dose: 80 mg Carvedilol (Coreg) 25 mg PO BID [facility] Last Admin: 01/14/19 08:12 Dose: 25 mg Cyclobenzaprine HCl (Flexeril) 5 mg PO TID [facility] Last Admin: 01/14/19 08:10 Dose: 5 mg Furosemide (Lasix) 40 mg PO DAILY [facility] Last Admin: 01/14/19 08:11 Dose: 40 mg Glipizide (Glucotrol Xl) 10 mg PO 0800,1700 [facility] Last Admin: 01/14/19 08:12 Dose: 10 mg Insulin Human Lispro (Humalog) [address] [facility]; Protocol Last Admin: 01/14/19 08:04 Dose: Not Given Lidocaine (Lidoderm) 1 ea TD DAILY [facility] Last Admin: 01/14/19 08:56 Dose: 1 ea Lisinopril (Zestril) 20 mg PO DAILY [facility] Last Admin: 01/14/19 08:57 Dose: 20 mg Magnesium Oxide (Mag-Ox) 400 mg PO BID [facility] Last Admin: 01/14/19 08:09 Dose: 400 mg Metformin HCl (Glucophage) 1,000 mg PO BID [facility] Last Admin: 01/14/19 08:10 Dose: 1,000 mg Pantoprazole Sodium (Protonix Ec Tab) 40 mg PO 0600 [facility] Last Admin: 01/14/19 06:32 Dose: 40 mg Tramadol HCl (Ultram) 50 mg PO Q12 PRN PRN Reason: Pain, severe (8-10) - Labs Labs: 01/06/19 06:25 01/07/19 05:30
[2019-01-15 00:45] VITALS: RESP 20
[2019-01-15] MEDS: Pantoprazole 40 mg EC Tab PO SCH (06:22)
[2019-01-15] MEDS: Insulin Lispro (humaLOG) 100 Units/ml Inj SC SCH (06:45)
[2019-01-15 08:23] VITALS: TEMP 98.1; O2SAT 96
[2019-01-15] MEDS: Lidocaine 5% Patch TD SCH (08:28)
[2019-01-15] MEDS: Magnesium Oxide 400 mg Tab UD PO SCH (08:28)
[2019-01-15] MEDS: GlipiZIDE 10 mg SR Tab PO SCH (08:30)
[2019-01-15] MEDS: Aspirin 325 mg EC Tablets PO SCH (08:30)
[2019-01-15 09:17] VITALS: BP 101/62; PULSE 69
--- NOTE | 2019-01-16 00:43 | CP.PCM.PN ---
Subjective - Date & Time of Evaluation Date of Evaluation: 01/09/19 Objective - Vital Signs/Intake and Output Vital Signs (last 24 hours): Temp Pulse Resp BP Pulse Ox 98.1 F 69 20 101/62 96 01/15/19 08:22 01/15/19 09:16 01/15/19 08:22 01/15/19 09:16 01/15/19 08:22 - Labs Labs: 01/06/19 06:25 01/07/19 05:30 Assessment and Plan (1) Cerebrovascular accident Status: Acute (2) Dyspnea Status: Acute (3) Hyperglycemia due to type 1 diabetes mellitus Status: Acute (4) Cardiomyopathy Status: Chronic
--- NOTE | 2019-01-16 00:44 | CP.PCM.PN ---
Subjective - Date & Time of Evaluation Date of Evaluation: 01/10/19 Objective - Vital Signs/Intake and Output Vital Signs (last 24 hours): Temp Pulse Resp BP Pulse Ox 98.1 F 69 20 101/62 96 01/15/19 08:22 01/15/19 09:16 01/15/19 08:22 01/15/19 09:16 01/15/19 08:22 - Labs Labs: 01/06/19 06:25 01/07/19 05:30 Assessment and Plan (1) Cerebrovascular accident Status: Acute (2) Dyspnea Status: Acute (3) Hyperglycemia due to type 1 diabetes mellitus Status: Acute (4) Cardiomyopathy Status: Chronic
--- NOTE | 2019-01-16 00:45 | CP.PCM.PN ---
Subjective - Date & Time of Evaluation Date of Evaluation: 01/12/19 Objective - Vital Signs/Intake and Output Vital Signs (last 24 hours): Temp Pulse Resp BP Pulse Ox 98.1 F 69 20 101/62 96 01/15/19 08:22 01/15/19 09:16 01/15/19 08:22 01/15/19 09:16 01/15/19 08:22 - Labs Labs: 01/06/19 06:25 01/07/19 05:30 Assessment and Plan (1) Cerebrovascular accident Status: Acute (2) Dyspnea Status: Acute (3) Hyperglycemia due to type 1 diabetes mellitus Status: Acute (4) Cardiomyopathy Status: Chronic
--- NOTE | 2019-01-16 00:45 | CP.PCM.PN ---
Subjective - Date & Time of Evaluation Date of Evaluation: 01/11/19 Objective - Vital Signs/Intake and Output Vital Signs (last 24 hours): Temp Pulse Resp BP Pulse Ox 98.1 F 69 20 101/62 96 01/15/19 08:22 01/15/19 09:16 01/15/19 08:22 01/15/19 09:16 01/15/19 08:22 - Labs Labs: 01/06/19 06:25 01/07/19 05:30 Assessment and Plan (1) Cerebrovascular accident Status: Acute (2) Dyspnea Status: Acute (3) Hyperglycemia due to type 1 diabetes mellitus Status: Acute (4) Cardiomyopathy Status: Chronic
--- NOTE | 2019-01-16 00:46 | CP.PCM.PN ---
Subjective - Date & Time of Evaluation Date of Evaluation: 01/13/19 Objective - Vital Signs/Intake and Output Vital Signs (last 24 hours): Temp Pulse Resp BP Pulse Ox 98.1 F 69 20 101/62 96 01/15/19 08:22 01/15/19 09:16 01/15/19 08:22 01/15/19 09:16 01/15/19 08:22 - Labs Labs: 01/06/19 06:25 01/07/19 05:30 Assessment and Plan (1) Cerebrovascular accident Status: Acute (2) Dyspnea Status: Acute (3) Hyperglycemia due to type 1 diabetes mellitus Status: Acute (4) Cardiomyopathy Status: Chronic
--- NOTE | 2019-01-16 00:47 | CP.PCM.PN ---
Subjective - Date & Time of Evaluation Date of Evaluation: 01/14/19 Objective - Vital Signs/Intake and Output Vital Signs (last 24 hours): Temp Pulse Resp BP Pulse Ox 98.1 F 69 20 101/62 96 01/15/19 08:22 01/15/19 09:16 01/15/19 08:22 01/15/19 09:16 01/15/19 08:22 - Labs Labs: 01/06/19 06:25 01/07/19 05:30 Assessment and Plan (1) Cerebrovascular accident Status: Acute (2) Dyspnea Status: Acute (3) Hyperglycemia due to type 1 diabetes mellitus Status: Acute (4) Cardiomyopathy Status: Chronic
--- NOTE | 2019-01-16 00:48 | CP.PCM.PN ---
Subjective - Date & Time of Evaluation Date of Evaluation: 01/15/19 Objective - Vital Signs/Intake and Output Vital Signs (last 24 hours): Temp Pulse Resp BP Pulse Ox 98.1 F 69 20 101/62 96 01/15/19 08:22 01/15/19 09:16 01/15/19 08:22 01/15/19 09:16 01/15/19 08:22 - Labs Labs: 01/06/19 06:25 01/07/19 05:30 Assessment and Plan (1) Cerebrovascular accident Status: Acute (2) Dyspnea Status: Acute (3) Hyperglycemia due to type 1 diabetes mellitus Status: Acute (4) Cardiomyopathy Status: Chronic
--- NOTE | 2019-01-16 00:50 | CP.PCM.DIS ---
Provider - Provider Date of Admission: 01/05/19 14:49 Attending physician: Katya Miller MD Consults: 01/05/19 19:23 Physiatry Consult Routine Comment: Consulting Provider: Darnell Tesfaye Consulting Physician: Darnell Tesfaye Reason for Consult: Acute Rehab.,Dx. CVA 01/06/19 08:00 Case Management Referral Routine Comment: Physician Instructions: Reason For Exam: Reason for Referral: Discharge Planning Time Spent in preparation of Discharge (in minutes): 25 Diagnosis - Discharge Diagnosis (1) Cerebrovascular accident Status: Acute Priority: High (2) Dyspnea Status: Acute Priority: Medium (3) Hyperglycemia due to type 1 diabetes mellitus Status: Acute Priority: Low (4) Cardiomyopathy Status: Chronic Priority: Medium Hospital Course - Lab Results Lab Results: Most Recent Lab Values WBC 7.3 K/uL (4.8-10.8) 01/06/19 06:25 RBC 4.71 Mil/uL (4.40-5.90) 01/06/19 06:25 Hgb 14.0 g/dL (12.0-18.0) 01/06/19 06:25 Hct 40.9 % (35.0-51.0) 01/06/19 06:25 MCV 86.9 fl (80.0-94.0) 01/06/19 06:25 MCH 29.7 pg (27.0-31.0) 01/06/19 06:25 MCHC 34.2 g/dL (33.0-37.0) 01/06/19 06:25 RDW 13.1 % (11.5-14.5) 01/06/19 06:25 Plt Count 177 K/uL (130-400) 01/06/19 06:25 Sodium 138 mmol/l (132-148) 01/07/19 05:30 Potassium 4.0 MMOL/L (3.6-5.0) 01/07/19 05:30 Chloride 100 mmol/L (98-107) 01/07/19 05:30 Carbon Dioxide 29 mmol/L (22-30) 01/07/19 05:30 Anion Gap 13 (10-20) 01/07/19 05:30 BUN 20 mg/dl (9-20) 01/07/19 05:30 Creatinine 1.0 mg/dl (0.8-1.5) 01/07/19 05:30 Est GFR ( Amer) > 60 01/07/19 05:30 Est GFR (Non-Af Amer) > 60 01/07/19 05:30 POC Glucose (mg/dL) 123 mg/dL (65-110) H 01/15/19 06:25 Random Glucose 174 mg/dL (75-110) H 01/07/19 05:30 Calcium 9.3 mg/dL (8.4-10.2) 01/07/19 05:30 Total Bilirubin 0.9 mg/dl (0.2-1.3) 01/06/19 06:25 AST 20 U/L (17-59) 01/06/19 06:25 ALT 24 U/L (21-72) 01/06/19 06:25 Alkaline Phosphatase 76 U/L (38-126) 01/06/19 06:25 Total Protein 6.9 G/DL (6.3-8.2) 01/06/19 06:25 Albumin 3.8 g/dL (3.5-5.0) 01/06/19 06:25 Globulin 3.1 gm/dL (2.2-3.9) 01/06/19 06:25 Albumin/Globulin Ratio 1.2 (1.0-2.1) 01/06/19 06:25 Discharge Exam - Head Exam Head Exam: ATRAUMATIC, NORMAL INSPECTION, NORMOCEPHALIC Discharge Plan - Follow Up Plan Condition: GOOD Disposition: HOME/ ROUTINE Instructions: Stroke, Type 1 Diabetes, Lidocaine (Topical), Cardiomyopathy (DC), Amlodipine, Aspirin, Atorvastatin, Carvedilol, Furosemide, Lisinopril, Magnesium Oxide, Metformin, Pantoprazole, Spironolactone Additional Instructions: Activity as tolerated, no strenous activity.Heart healthy, moderate consistent carbohydrate diet. Referrals: Leonid Worley MD [Family Provider] - Rico Solomon MD [Staff Provider] -
== END 2019-01-15 11:15 | disposition home or self-care (01) | DRG 57 ==
PROVIDERS: ADMIT Internal Medicine; ATTEND Internal Medicine
PROC: F08Z4FZ Home Management Treatment using Assistive, Adaptive, Supportive or Protective Equipment (ICD-10-PCS; principal; 2019-01-06)
PROC: F07M6FZ Therapeutic Exercise Treatment of Musculoskeletal System - Whole Body using Assistive, Adaptive, Supportive or Protective Equipment (ICD-10-PCS; 2019-01-06)
PROC: F07Z9FZ Gait Training/Functional Ambulation Treatment using Assistive, Adaptive, Supportive or Protective Equipment (ICD-10-PCS; 2019-01-06)
DX: I69.354 Hemiplegia and hemiparesis following cerebral infarction affecting left non-dominant side (principal); I42.9 Cardiomyopathy, unspecified; E10.65 Type 1 diabetes mellitus with hyperglycemia; E78.00 Pure hypercholesterolemia, unspecified; I11.0 Hypertensive heart disease with heart failure; I50.9 Heart failure, unspecified; J44.9 Chronic obstructive pulmonary disease, unspecified; Z91.81 History of falling; Z87.891 Personal history of nicotine dependence; Z95.810 Presence of automatic (implantable) cardiac defibrillator